=== PATIENT | female | born 1930 | race Caucasian/White ===

== ENCOUNTER 2019-01-22 07:31 | Day surgery (SDC) | payer MEDICARE ==
[~2019-01-22 07:31] MED LIST: ACETAMINOPHEN 1,000 MG/100 ML BTL IVPB ONE; CEFAZOLIN 2 Gram 2 GM/50 ML BAG IVPB ONE; FAMOTIDINE 20MG TABLET PO ONE; METOCLOPRAMIDE 10 MG TABLET PO ONE; SCOPOLAMINE 1 PATCH TDSY TD ONE; VANCOMYCIN 1GM/200ML PREMIX 1 GM/200 ML PIGGYBACK IVPB ONE
[2019-01-22] MEDS ORDERED: EPHEDRINE SULFATE 50 MG/ML ML IV ONE (07:32)
[2019-01-22] MEDS ORDERED: LIDOCAINE 2% MDV (20MG/ML) 20ML VIAL IV ONE (07:32)
[2019-01-22] MEDS ORDERED: GLYCOPYRROLATE 0.2 MG/ML ML IV ONE (07:32)
[2019-01-22] MEDS ORDERED: DEXAMETHASONE 4 MG/ML 1ML VIAL IVP ONE (07:32)
[2019-01-22] MEDS ORDERED: ROPIVACAINE HCL (NAROPIN) /PF 5MG/ML 20ML VIAL IV ONE (07:32)
[2019-01-22] MEDS ORDERED: TRANEXAMIC ACID 1,000 MG/10 ML ML IV ONE (07:32)
[2019-01-22] MEDS ORDERED: PROPOFOL 10 MG/ML VIAL IV ONE (07:32)
[2019-01-22] MEDS ORDERED: MIDAZOLAM HCL 2MG/2ML VIAL IV ONE (07:32)
[2019-01-22] MEDS ORDERED: HYDROMORPHONE HCL 2 MG/ML VIAL IM PRN ×2 (08:11)
[2019-01-22] MEDS ORDERED: TRAMADOL HCL 50 MG TABLET PO PRN ×2 (08:11)
[2019-01-22] MEDS ORDERED: PROMETHAZINE HCL 12.5 MG in 0.9 % SODIUM CHLORIDE 100ML 50 ML IVPB PRN (08:11)
[2019-01-22] MEDS ORDERED: DIPHENHYDRAMINE HCL 25 MG CAPSULE PO PRN (08:11)
[2019-01-22] MEDS ORDERED: ACETAMINOPHEN W/ CODEINE 300MG/30MG TABLET PO PRN ×2 (08:11)
[2019-01-22] MEDS ORDERED: HYDROCODONE/APAP 7.5/325MG TABLET PO PRN ×2 (08:11)
[2019-01-22] MEDS ORDERED: HYDROCODONE/APAP 5/325MG TABLET PO PRN (08:11)
[2019-01-22] MEDS ORDERED: MAGNESIUM HYDROXIDE 30 ML UDC PO PRN (08:11)
[2019-01-22] MEDS ORDERED: ZOLPIDEM TARTRATE 5 MG TABLET PO PRN (08:11)
[2019-01-22] MEDS ORDERED: ACETAMINOPHEN 325 MG TAB PO PRN (08:11)
[2019-01-22] MEDS ORDERED: METOCLOPRAMIDE HCL 10 MG/2 ML VIAL IVP PRN (08:11)
[2019-01-22] MEDS ORDERED: KETOROLAC 30 MG/ML VIAL IVP PRN ×2 (08:11)
[2019-01-22] MEDS ORDERED: ACETAMINOPHEN W/ CODEINE 300MG/60MG TABLET PO PRN ×2 (08:11)
[2019-01-22] MEDS ORDERED: AL HYDROX/MAG HYDROX 30ML UD PO PRN (08:11)
[2019-01-22] MEDS ORDERED: NALOXONE 0.4 MG/1 ML VIAL IVP PRN (08:11)
[2019-01-22] MEDS ORDERED: BISACODYL 10 MG SUPP RC PRN (08:11)
[2019-01-22] MEDS ORDERED: ONDANSETRON HCL IV 4 MG/2 ML VIAL IVP PRN (08:11)
[2019-01-22 08:20] LABS: ABO GROUP B; ANTIBODY SCREEN NEGATIVE (NEGATIVE); RH TYPE POSITIVE
[2019-01-22] MEDS ORDERED: 0.9 % SODIUM CHLORIDE 1000ML 1,000 ML IV ONE (08:55)
[2019-01-22] MEDS ORDERED: RINGERS SOLUTION,LACTATED 1,000 ML IV ONE ×2 (08:55→11:02)
[2019-01-22] MEDS ORDERED: ACETAMINOPHEN 500 MG TABLET PO ONE (09:00)
[2019-01-22] MEDS ORDERED: BUPIVACAINE LIPOSOME 266MG/20ML VIAL SQ ONE (10:27)
[2019-01-22] MEDS ORDERED: BUPIVACAINE 0.5% W/EPI MPF 30 ML VIAL SQ ONE (10:27)
[2019-01-22] MEDS ORDERED: VANCOMYCIN HCL 3,000 MG in RINGERS SOLUTION,LACTATED 3,000 ML IVPB ONE (10:27)
[2019-01-22] MEDS ORDERED: DEXTROSE 5 % AND 0.9 % NACL 1,000 ML IV PRN (12:30)
[2019-01-22] MEDS: SERTRALINE HCL 50 MG TABLET PO SCH (15:24)
--- NOTE | 2019-01-22 16:01 | Rehab Evaluation ---
Patient Information - Patient Information Diagnosis: R knee DJD Ordered Treatment: PT Evaluate and Treat Status: Initial Evaluation Surgery: Yes (R TKA) Date of Surgery: 01/22/19 Past Medical/Surgical Hx: PAST MEDICAL/SURGICAL HISTORY Past Surgical History LUMBAR SX HYST LTKA TONSILS BENIGN LUMP RIGHT BREAST PMH - Respiratory Hx Respiratory Disorders Yes Hx Pneumonia Yes: YRS AGO PMH - Cardiovascular Hx Cardiovascular Disorders Yes Hx Hypertension Yes: CONTROLLED WITH MEDS Exercise Tolerance Fair Hx of Migraines Yes: HX OF NOTHING SINCE AGE 44 Comment: HYPERLIPIDEMIA PMH - Neuro Hx Neurological Disorders Yes Hx Neuropathy Yes: LEFT LEG Comment: POOR BALANCE PMH - GI Hx Gastrointestinal Disorders No PMH - Hx Genitourinary Disorders Yes Hx Urinary Tract Infection Yes: HX OF PMH - Endocrine Hx Endocrine Disorders No PMH - Musculoskeletal Hx Musculoskeletal Disorders Yes Hx Arthritis Yes: RIGHT KNEE PMH - Psych Hx Psychiatric Problems Yes Hx Anxiety Yes Hx Depression Yes PMH - Hematology/Oncology Hx Hematology/Oncology Yes Disorders Hx Cancer Yes: SKIN CANCER Premorbid Status: Detail (The patient was independent with all mobility prior to surgery.) Social History: Detail (The claribel lives alone in a one story house with 1 step a landing and one step at the enterance with a grab bar to hold onto. The bathroom is equipped with a walk in shower with grab bars and shower bench and an elevated toilet with grab bars. The patient has a walker with wheels and a standard cane.) Precautions: [place], Fall, Other (WBAT on the R LE) - Time With Patient Total Time Spent With Patient (Min): 30 Treatment Procedures: Detail (Initial Evaluation, gait training) Subjective Information - Subjective Information Per Patient (The patient had no complaints of pain) Objective Data - Mental Status Patient Orientation: Oriented x3 - Visual Perception Appears within normal limits for therapeutic activities - ROM Not within normal limits (The patient's R knee is limited as to be expected s/p surgery. All other LE AROM is WNL.) - Strength/Tone Not within normal limits (The patient's R LE stength was not tested s/p surgery however is functional ie: patient was able to lift R LE in and out of bed. L LE strength is WFL.) - Bed Mobility Independent (The patient was independent with supine to and from sit transfer.) - Transfers Independent (The patient was independent with sit to and from stand transfer.) - Balance Balance Sitting: Good Balance Standing: Good - Sensation Intact - Gait Detail (The patient ambulated with front wheeled walker WBAT on the R LE a distance of 108 feet x 1 independently.) Therapy Assessment - Therapy Assessment Detail (The patient was independent with bed mobility,transfers and ambulation. Feel the patient will progress well with mobility.) Problem List - Problem List Physical Therapy Problem List: Detail (1) Limited R knee AROM 2) Decreased R LE strength) Goals - Goals Physical Therapy Goals: 1) The patient will be independent with TKA HEP. 2) The patient will ambulate on stairs with supervision for safety using proper technique Prognosis - Prognosis Good Plan - Plan Physical Therapy Plan: PT 1-2 sessions for instruction in TKA HEP and gait training on stairs.
[2019-01-22] MEDS: FERROUS SULFATE 325 MG TAB PO SCH (21:26)
[2019-01-22] MEDS: HYDROCODONE/APAP 5/325MG TABLET PO PRN (21:26)
[2019-01-22] MEDS: DOCUSATE SODIUM 100 MG CAPSULE PO SCH (21:26)
[2019-01-22] MEDS: VANCOMYCIN 1GM/200ML PREMIX 1 GM/200 ML PIGGYBACK IVPB SCH (21:27)
[2019-01-23 07:04] LABS: HEMATOCRIT 35.9 % (35.0-47.0); HEMOGLOBIN 11.4 gm/dl (11.6-16.0)
[2019-01-23] MEDS: HYDROCODONE/APAP 5/325MG TABLET PO PRN (07:23)
[2019-01-23] MEDS: DOCUSATE SODIUM 100 MG CAPSULE PO SCH (09:38)
[2019-01-23] MEDS: SERTRALINE HCL 50 MG TABLET PO SCH (09:39)
[2019-01-23] MEDS: FERROUS SULFATE 325 MG TAB PO SCH (09:39)
--- NOTE | 2019-01-23 09:49 | Physical Therapy Tx Note ---
Physical Therapy Tx Note - Treatment Note Tolerated: Good Total Time Spent With Patient: 20 Physical Therapy Tx Note: Detail (The patient was up in a chair when PT arrived. The patient ambulated with front wheeled walker a distance of 120 feet x 1 WBAT on the R LE independently. The patient ambulated on 3 stairs with use of railing and folded walker using proper technique with supervision for safety. The patient completed the following TKA exercises including: seated and supine heel slides, ankle pumps, quad sets, gluteal sets, hamstring sets, SLR . The patient has met all inpatient PT goals.) Physical Therapy Problem List: Detail (1) Limited R knee AROM 2) Decreased R LE strength) Physical Therapy Goals: 1) The patient will be independent with TKA HEP (Goal Met). 2) The patient will ambulate on stairs with supervision for safety using proper technique (Goal Met) Physical Therapy Plan: The patient has met all inpatient PT goals and is discharged from inpatient PT. The patient is to receive Home PT.
[2019-01-23] MEDS ORDERED: LISINOPRIL 20 MG TABLET PO SCH (10:00)
[2019-01-23] MEDS ORDERED: RIVAROXABAN 10 MG TABLET PO SCH (10:00)
[2019-01-23] MEDS ORDERED: HYDROCHLOROTHIAZIDE 25 MG TABLET PO SCH (10:00)
[2019-01-23] MEDS ORDERED: CELECOXIB 100 MG CAPSULE PO SCH (10:00)
[2019-01-23] MEDS ORDERED: ASCORBIC ACID 500 MG TAB PO SCH (10:00)
[2019-01-23] MEDS ORDERED: SIMVASTATIN 10MG TABLET PO SCH (10:00)
[2019-01-23] MEDS: VANCOMYCIN 1GM/200ML PREMIX 1 GM/200 ML PIGGYBACK IVPB SCH (10:21)
--- NOTE | 2019-01-23 15:22 | Rehab Evaluation ---
Patient Information - Patient Information Diagnosis: R knee DJD Ordered Treatment: OT Evaluate and Treat Status: Initial Evaluation Surgery: Yes (R TKA) Date of Surgery: 01/22/19 Past Medical/Surgical Hx: PAST MEDICAL/SURGICAL HISTORY Past Surgical History LUMBAR SX HYST LTKA TONSILS BENIGN LUMP RIGHT BREAST PMH - Respiratory Hx Respiratory Disorders Yes Hx Pneumonia Yes: YRS AGO PMH - Cardiovascular Hx Cardiovascular Disorders Yes Hx Hypertension Yes: CONTROLLED WITH MEDS Exercise Tolerance Fair Hx of Migraines Yes: HX OF NOTHING SINCE AGE 44 Comment: HYPERLIPIDEMIA PMH - Neuro Hx Neurological Disorders Yes Hx Neuropathy Yes: LEFT LEG Comment: POOR BALANCE PMH - GI Hx Gastrointestinal Disorders No PMH - Hx Genitourinary Disorders Yes Hx Urinary Tract Infection Yes: HX OF PMH - Endocrine Hx Endocrine Disorders No PMH - Musculoskeletal Hx Musculoskeletal Disorders Yes Hx Arthritis Yes: RIGHT KNEE PMH - Psych Hx Psychiatric Problems Yes Hx Anxiety Yes Hx Depression Yes PMH - Hematology/Oncology Hx Hematology/Oncology Yes Disorders Hx Cancer Yes: SKIN CANCER Premorbid Status: Detail (The patient was independent with all mobility, meal perp, laundry and home mgmt prior to surgery. Her spouse is in an AFC.) Social History: Detail (The patient lives alone in a one story house with 1 step a landing and one step at the entrance with a grab bar to hold onto. The bathroom is equipped with a walk in shower with grab bars and shower bench and an elevated toilet with grab bars. The patient has a walker with wheels and a standard cane as well as a program services assistant, sock ai and long shoe horn. Her daughter and son in law will be staying with her for several days.) Precautions: [place], Fall, Other (WBAT on the R LE) - Time With Patient Total Time Spent With Patient (Min): 40 Treatment Procedures: Detail (OT eval low complexity) Subjective Information - Subjective Information Per Patient Objective Data - Pain Pain Present: Yes (09/24) - Mental Status Patient Orientation: Oriented x3 - Visual Perception Appears within normal limits for therapeutic activities - ROM Within normal limits (Ramiro UE AROM WNL) - Strength/Tone Within normal limits (Ramiro UE strength WNL) - Coordination Appears within normal limits for therapeutic activities - Bed Mobility Independent (Ind with supine to sit) - Transfers Independent (Ind with sit to stand) - Balance Balance Sitting: Good Balance Standing: Good - Sensation Intact - ADL's/IADL's Detail (Pt educated and able to demonstrate learning of modified LE dressing techniques including donning pants and slip on shoes. She had difficulty with socks as she had the maicol wrap on her right foot but she feels she will be able to perform this at home. Reviewed kitchen and shower safety and modifications, pt verbalized understanding.) Therapy Assessment - Therapy Assessment Detail (Pt is Ind with modified LE dressing techniques.) Problem List - Problem List Physical Therapy Problem List: Detail (1) Limited R knee AROM 2) Decreased R LE strength) Occupational Therapy Problem List: Detail (No current IP OT problems identified.) Goals - Goals Physical Therapy Goals: 1) The patient will be independent with TKA HEP (Goal Met). 2) The patient will ambulate on stairs with supervision for safety using proper technique (Goal Met) Occupational Therapy Goals: No current IP OT goals identified. Prognosis - Prognosis Good Plan - Plan Physical Therapy Plan: The patient has met all inpatient PT goals and is discharged from inpatient PT. The patient is to receive Home PT. Occupational Therapy Plan: No further IP OT recommended. Thank you for this referral.
--- NOTE | 2019-01-30 11:09 | Operative Note ---
PREOPERATIVE DIAGNOSIS: END STAGE RIGHT KNEE ARTHROSIS. POSTOPERATIVE DIAGNOSIS: END STAGE RIGHT KNEE ARTHROSIS. PROCEDURE: RIGHT TOTAL KNEE ARTHROPLASTY. SURGEON: Pako Brady M.D. ANESTHESIA: Spinal. ANESTHESIA PROVIDER: Arnulfo Cee CRNA. COMPLICATIONS: None. BLOOD LOSS: Minimal. TOURNIQUET TIME: Approximately 60 minutes. OPERATIVE FINDINGS: [id number] medial compartment arthrosis. COMPONENTS PLACED: A total of 2 gm Vancomycin, cemented [employer] II Oxinium size 4 femoral component, size size 4 tibial base plate, 10 mm thick tibial poly insert, and a 32 mm cemented patellar component. INDICATIONS FOR OPERATION: This is an 88-year-old female who is well known to myself. She is status post left total knee arthroplasty done years ago and is now scheduled for the right. I explained all risks and benefits in detail for her diagnosis and procedures including but not limited to infection, nerve injury, vessel injury, persistent pain, numbness, tingling, need for periprosthetic fracture, need for resection arthroplasty, components infected or loosened, blood clot, need for anticoagulation to prevent blood clots, and risks associated with these medications. All of her questions were answered and her treatment and course were outlined. She agreed to proceed. PROCEDURE: The patient was brought to the OR and placed in the supine position. She prepped for surgery and preoperative antibiotics were given prior to surgery. Spinal anesthesia was induced and her right lower extremity and knee were prepped and draped in sterile fashion. The right knee was prepped again with ChloraPrep and draped, and intraoperative time-out was performed. Next, the incision was marked and infiltrated with 0.5% Marcaine with epinephrine, 2.0 gm of tranexamic acid, and Exparel mixture. We exsanguinated the leg with Esmarch. The knee was flexed and the tourniquet was inflated to 250 mmHg pressure. Next, the skin and subcutaneous tissues were dissected down. The medial and lateral skin flaps were made, Incised the capsule medially along the medial border of the patella to the tibial tubercle. Incised the vastus medialis in line with its fibers, in a a mid vastus approach. Partially resected the retropatellar fat pad. Elevated the capsule subperiosteally and medially and flexed the knee. She had [id number] medial compartment arthrosis. I drilled intracondylar drill hole and inserted intramedullary guide fernanda with a 60-degree cutting block. Aligned the distal femoral condyles and pinned the distal femoral cutting jig in the +2 mm position. Cut the distal femoral condyles. Next we placed the sizing jig to the distal femoral condyles and was sized right to be on size 4. Through the previously placed pinholes we placed the 5 in 1 cutting jig. We dialed the anterior cut so that we could come out flush without notching, we cut that cut and it was a good flush cut. Next, we pinned the cutting jig, and cut the remainder of the chamfer cuts in the usual fashion. After we got done with the chamfer cuts we then placed the trial size 4 component. We centered it, pinned it, and removed osteophytes. We inserted the femoral resection collar and reamed out and box osteotomed out the cruciate bone block. Next attention was turned to the tibia. We placed the axial alignment jig on the tibia, seated the spikes in the tubercular groove two fingerbreadths distally over the distal cortex. Referenced for a 7 mm cut with the jig off the higher lateral plateau. We then pinned that and placed provisional anterior and posterior pins. Rechecked alignment of the the cutting jig. Using a drop fernanda centered on the tibia at the anatomic axis and cross pinned and completed its fixation. We then cut the tibia. Next we removed osteophytes off the posterior femoral condyles using a curved osteotome. We checked flexion and extension gaps and sized up to a 10 mm thick poly insert. Allowed for 2-3 mm varus and valgus laxity in flexion and extension. Overall alignment and cuts in extension of the anatomic valgus orientation using alignment fernanda centered on the hip joint and ankle joint. Flexed the knee and sized the tibial baseplate to size 4. Replaced all trial components, set the rotation tibial baseplate again in extension. Using alignment fernanda centered on the hip joint and ankle joint, marked electrocautery zhang on the anterior tibial cortex off the laser zhang on the tibial baseplate. Next attention was turned to the patella, we measured patella to be 21 mm, set the cutting jig at 12 mm to allow for a 9 mm thick poly insert. We cut the patella. Chamfered off lateral patellar facet and sized for a 32. Medialized as much as possible and drilled 3 peg holes. We then inserted the trial patellar component. The patella tracked nicely hands free. Had full extension and flexion to 130 degrees, and again symmetric flexion and extension gaps were found. Next we took the knee in flexion and mixed cement. Seated the tibial baseplate with the previously placed electrocautery zhang and pinned it in place. We then drilled out and keel punched the keel hole. Next we changed gloves and brought in clean sheets. Copiously irrigated with pulse lavage and antibiotic solution. Placed a bone plug in the femoral canal and then the drill bit in the tibial keel hole. I then precoated both surfaces and impacted down the the tibial component first and then the femoral component. Removed excess cement and placed the trial tibial poly liner. I clamped down the patellar component and held the knee in extension until cement hardened and removed the excess cement. We took the knee in flexion and distracted the knee with the bone hook and sponge. Removed the trial tibial poly liner and injected 0.5% Marcaine with epinephrine, Exparel, and tranexamic acid mixture into the capsule medially and laterally, working out peripherally to the periosteum. Then we inserted the the real tibial poly insert and verified it was interlocked. Found that range of motion felt the same. Irrigated copiously. We injected more of our mixture more superficially now into the vastus medialis, quadriceps, and patellar tendons subcutaneously. Closed the knee in flexion using running #2 Quill suture in the capsule and then 2-0 Vicryl and then gera. A sterile dressing was applied, Jordan wrap. Tolerated the procedure well. No intraoperative complications. Sponge, needle, and blade counts were correct. Recovery Room stable and neurovascularly intact. She will be discharged to the floor and will likely be discharged tomorrow. Follow up in two weeks. JOB NUMBER: [id number] cc: Jose Santos
== END 2019-01-23 12:36 | disposition home health service (06) ==
LOC: SUR 07:31 → MEDSURG 12:00 → SUR 01-23 12:36
PROVIDERS: ATTEND Orthopaedic Surgery
DX: M17.11 Unilateral primary osteoarthritis, right knee (principal); I10 Essential (primary) hypertension; E78.00 Pure hypercholesterolemia, unspecified
CPT/HCPCS: 76942; 85014; 85018; 86850; 86900; 86901; 97110; 97530; J3370; J7030; J7042; J7120